=== PATIENT | female | born 1950 | race American Indian/Alaskan Native ===

== ENCOUNTER 2017-08-28 11:16 | Outpatient (CLI) | payer MEDICARE, OTHER ==
[2017-08-28 11:49] LABS: CREATININE 0.8 mg/dL (0.4-1.0)
== END 2017-08-28 11:17 | disposition home or self-care (01) ==
LOC: LAB 11:16
PROVIDERS: ATTEND Obstetrics & Gynecology
DX: M81.0 Age-related osteoporosis without current pathological fracture (principal)
CPT/HCPCS: 36415; 82565

== ENCOUNTER 2017-10-22 08:00 | Outpatient (CLI) | payer MEDICARE, OTHER ==
[2017-10-22 19:13] LABS: BASOPHILS % (AUTO) 0.7 %; EOSINOPHILS # (AUTO) 0.1 10^3/uL (0.0-0.7); EOSINOPHILS % (AUTO) 1.3 %; HGB - HEMOGLOBIN 14.9 g/dL (12.0-16.0); LYMPHOCYTES # (AUTO) 1.3 10^3/uL (1.5-3.5); MEAN CORPUSCULAR HEMOGLOBIN 30.9 pg (27.0-31.0); MEAN CORPUSCULAR HGB CONC 32.5 g/dL (32.0-36.0); MEAN CORPUSCULAR VOLUME 95.2 fL (81.0-99.0); MONOCYTES # (AUTO) 0.4 10^3/uL (0.0-1.0); MONOCYTES % (AUTO) 7.1 %; NEUTROPHILS # (AUTO) 3.9 10^3/uL (1.5-6.6); NEUTROPHILS % (AUTO) 67.9 %; PLT - PLATELET COUNT 210 10^3/uL (130-450); RED BLOOD COUNT 4.83 10^6/uL (4.20-5.40); RED CELL DISTRIBUTION WIDTH 12.8 % (12.0-15.0); WHITE BLOOD COUNT 5.8 x10^3/uL (4.8-10.8)
[2017-10-22 19:24] LABS: ALBUMIN 4.7 g/dL (3.2-5.5); BILIRUBIN,TOTAL 0.9 mg/dL (0.2-1.0); CALCIUM 9.5 mg/dL (8.5-10.3); CREATININE 0.7 mg/dL (0.4-1.0); TOTAL PROTEIN 7.1 g/dL (6.7-8.2)
== END 2017-10-22 08:01 | disposition home or self-care (01) ==
LOC: LAB.WCP 08:00
PROVIDERS: ATTEND Family Medicine
DX: M81.0 Age-related osteoporosis without current pathological fracture (principal)
CPT/HCPCS: 36415; 80053; 85025

== ENCOUNTER 2018-02-26 10:15 | Outpatient (CLI) | payer MEDICARE, OTHER ==
--- NOTE | 2018-02-27 17:54 | Mammography Report ---
DIGITAL SCREENING MAMMOGRAM: 02/26/2018 CLINICAL INDICATION: A 67-year-old with history of benign biopsies for screening. The patient reports having had previous outside mammograms greater than 20 years ago. This will serve as a new baseline. TECHNIQUE: Routine CC and MLO projections were obtained of the breasts. FINDINGS: The breasts demonstrate heterogeneously dense fibroglandular parenchyma bilaterally. Punctate, typically benign calcifications are present. No suspicious masses, clustered microcalcifications, or regions of architectural distortion are identified. IMPRESSION: BENIGN FINDINGS. RECOMMENDATION: Routine annual screening unless otherwise clinically indicated. BI-RADS category 2 benign findings. STANDARD QUALIFYING STATEMENTS 1. This examination was reviewed with the aid of Computed-Aided Detection (CAD). 2. A negative or benign imaging report should not delay biopsy if clinically suspicious findings are present. Consider surgical consultation if warranted. More than 5% of cancers are not identified by imaging. 3. Dense breasts may obscure an underlying neoplasm. TD: 02/27/2018 15:52
== END 2018-02-26 10:16 | disposition home or self-care (01) ==
LOC: DI.N 10:15
PROVIDERS: ATTEND Family Medicine
DX: Z12.31 Encounter for screening mammogram for malignant neoplasm of breast (principal)
CPT/HCPCS: 77067

== ENCOUNTER 2018-06-25 08:00 | Outpatient (CLI) | payer MEDICARE, OTHER | END 2018-06-25 08:01 | disposition home or self-care (01) | LOC: LAB.R 08:00 | PROVIDERS: ATTEND Nurse Practitioner | DX: N39.0 Urinary tract infection, site not specified (principal) | CPT/HCPCS: 87086; 87181 ==

== ENCOUNTER 2018-07-21 23:07 | Emergency (ER) | payer MEDICARE, OTHER ==
[2018-07-21 23:52] LABS: BASOPHILS % (AUTO) 0.5 %; EOSINOPHILS # (AUTO) 0.1 10^3/uL (0.0-0.7); EOSINOPHILS % (AUTO) 1.6 %; HGB - HEMOGLOBIN 16.3 g/dL (12.0-16.0); LYMPHOCYTES # (AUTO) 3.8 10^3/uL (1.5-3.5); MEAN CORPUSCULAR VOLUME 94.3 fL (81.0-99.0); MEAN PLATELET VOLUME 8.4 fL (7.9-10.8); MONOCYTES # (AUTO) 0.5 10^3/uL (0.0-1.0); MONOCYTES % (AUTO) 6.1 %; NEUTROPHILS # (AUTO) 4.3 10^3/uL (1.5-6.6); NEUTROPHILS % (AUTO) 48.8 %; PLT - PLATELET COUNT 244 10^3/uL (130-450); RED BLOOD COUNT 5.09 10^6/uL (4.20-5.40); RED CELL DISTRIBUTION WIDTH 12.8 % (12.0-15.0); WHITE BLOOD COUNT 8.8 x10^3/uL (4.8-10.8)
[2018-07-22] LABS: ALBUMIN/GLOBULIN RATIO 1.8 (1.0-2.2); BILIRUBIN,TOTAL 0.8 mg/dL (0.2-1.0); CALCIUM 9.3 mg/dL (8.5-10.3); CREATININE 0.8 mg/dL (0.4-1.0); TOTAL PROTEIN 7.8 g/dL (6.7-8.2)
--- NOTE | 2018-07-22 00:28 | ED Physician Documentation ---
PD HPI ABD PAIN - Stated complaint Stated Complaint: ABDOMINAL PAIN - Chief complaint Chief Complaint: Abd Pain - History obtained from History obtained from: Patient, Family - History of Present Illness Timing - onset: Enter time Timing - details: Abrupt onset, Waxing and waning Pain level max: 10 Pain level now: 6 Quality: Pain Improved by: Vomiting (vomited in ED prior to this evaluation and had significant relief of symptoms with vomiting) Worsened by: Other (no exacerbating factors) Associated symptoms: Nausea, Vomiting, Constipation (chronic). No: Fever, Diarrhea Similar symptoms before: Has not had sx before Recently seen: Not recently seen - Additional information Additional information: c/o sudden onset LUQ abdominal pain radiating to periumbilical area tonight 9:30 PM while at rest at home watching TV. waxing and waning without apparent exacerbating factors. Had partial symptom relief with vomiting after ED arrival. Review of Systems Constitutional: denies: Fever, Chills, Sweats Cardiac: reports: Reviewed and negative Respiratory: reports: Reviewed and negative GI: reports: Abdominal Pain, Nausea, Vomiting, Constipation. 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 - Present Medications Home Medications: Ambulatory Orders Medication Instructions Recorded Confirmed Melatonin 1 mg PO QPM 02/22/17 02/22/18 Cholecalciferol (Vitamin D3) 2,000 unit PO DAILY PM 09/03/17 02/22/18 [Vitamin D] Denosumab [Prolia] 60 mg SUBQ ONCE 09/03/17 09/03/17 Ibuprofen [Advil] 400 mg PO DAILY PRN 09/03/17 02/22/18 Loratadine [Claritin] 10 mg PO DAILY PRN 09/03/17 02/22/18 Omeprazole [PriLOSEC] 1 tab ORAL DAILY PRN 09/03/17 02/22/18 Promethazine [Phenergan] 12.5 mg PO DAILY PRN 09/03/17 02/22/18 Promethazine Sup [Phenergan Supp] 1 supp MD DAILY PRN 02/22/18 02/22/18 Esomeprazole Magnesium [Nexium] 20 mg PO DAILY #14 capsule. 07/22/18 - Allergies Allergies/Adverse Reactions: Allergies Allergy/AdvReac Type Severity Reaction Status Date / Time ondansetron Allergy Nausea Verified 07/21/18 23:19 codeine AdvReac Nausea Verified 07/21/18 23:19 hydrocodone AdvReac Nausea Verified 07/21/18 23:19 lisinopril AdvReac Nausea Verified 07/21/18 23:19 meclizine AdvReac Nausea Verified 07/21/18 23:19 mirtazapine AdvReac Nausea Verified 07/21/18 23:19 morphine AdvReac Nausea Verified 07/21/18 23:19 propranolol AdvReac Nausea Verified 07/21/18 23:19 trazodone AdvReac Nausea Verified 07/21/18 23:19 - Social History Does the pt smoke?: No Smoking Status: Never smoker Does the pt drink ETOH?: Yes Does the pt have substance abuse?: No - Immunizations Immunizations are current?: Yes - POLST Patient has POLST: No PD ED PE NORMAL - Vitals Vital signs reviewed: Yes - General General: Alert and oriented X 3, No acute distress, Well developed/nourished - HEENT HEENT: Moist mucous membranes - Cardiac Cardiac: RRR, No murmur - Respiratory Respiratory: No respiratory distress, Clear bilaterally - Abdomen Abdomen: Soft, Non distended, Other (mild tenderness to palpation LLQ and LUQ without guarding or rebound) Results - Vitals Vitals: Vital Signs - 24 hr 07/21/18 23:15 Temperature 36.3 C L Heart Rate 66 Respiratory 18 Rate Blood Pressure 178/90 H O2 Saturation 97 Oxygen O2 Source Room air - Labs Labs: Laboratory Tests 07/21/18 07/21/18 23:30 23:30 WBC 8.8 RBC 5.09 Hgb 16.3 H Hct 48.0 H MCV 94.3 MCH 32.0 H MCHC 34.0 RDW 12.8 Plt Count 244 MPV 8.4 Neut # (Auto) 4.3 Lymph # (Auto) 3.8 H [place] # (Auto) 0.5 Eos # (Auto) 0.1 Baso # (Auto) 0.0 Absolute Nucleated RBC 0.01 Nucleated RBC % 0.1 Sodium 138 Potassium 3.4 L Chloride 100 L Carbon Dioxide 27 Anion Gap 11.0 BUN 19 Creatinine 0.8 Estimated GFR (MDRD) 71 L Glucose 133 H Calcium 9.3 Total Bilirubin 0.8 AST 27 ALT 26 Alkaline Phosphatase 63 Total Protein 7.8 Albumin 5.0 Globulin 2.8 Albumin/Globulin Ratio 1.8 Lipase 38 - Rads (name of study) CT A/P Radiology: Prelim report reviewed, See rad report PD MEDICAL DECISION MAKING - ED course Complexity details: reviewed results, re-evaluated patient, considered differential, d/w patient, d/w family ED course: Patient declined analgesics, both initially and on reevaluation. She says she had relief with vomiting and thus did not need analgesics. On reevaluation, she reported further improvement in her pain and resolution of nausea. - Sepsis Event Vital Signs: Vital Signs - 24 hr 07/21/18 23:15 Temperature 36.3 C L Heart Rate 66 Respiratory 18 Rate Blood Pressure 178/90 H O2 Saturation 97 Oxygen O2 Source Room air Departure - Departure Disposition: 01 Home, Self Care Clinical Impression: Abdominal pain Qualifiers: Abdominal location: left upper quadrant Qualified Code(s): R10.12 - Left upper quadrant pain Condition: Good Instructions: ED Abdominal Pain Unkn Cause Prescriptions: Esomeprazole Magnesium [Nexium] 20 mg PO DAILY #14 capsule. 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 You should discuss this with your doctor; they might want to perform tests and/or refer you to a specialist if indicated. You also have a hiatal hernia on the CT scan. This also should be discussed with your primary care provider. Discharge Date/Time: 07/22/18 03:36
[2018-07-22 01:00] LABS: BILIRUBIN,URINE NEGATIVE (NEGATIVE); GLUCOSE, URINE (UA) NEGATIVE (NEGATIVE); KETONES,URINE (UA) NEGATIVE (NEGATIVE); LEUKOCYTE ESTERASE, URINE NEGATIVE (NEGATIVE); NITRITE,URINE NEGATIVE (NEGATIVE); OCCULT BLOOD,URINE NEGATIVE (NEGATIVE); PH,URINE 6.5 PH (5.0-7.5); PROTEIN,URINE TRACE mg/dL (NEGATIVE); UROBILINOGEN,URINE 0.2 (NORMAL) E.U./dL (NORMAL)
[2018-07-22 01:02] LABS: CLARITY,URINE CLEAR (CLEAR)
[2018-07-22] MEDS ORDERED: IOPAMIDOL-300 100 ML VIAL ONE (01:02)
[2018-07-22] MEDS ORDERED: IOPAMIDOL-300 100 ML VIAL IVP ONE (01:32)
--- NOTE | 2018-07-22 01:57 | CT Report ---
Reason: left abdominal pain Procedure Date: 07/22/2018 Accession Number: [id number] / [id number] Procedure: CT - Abdomen/Pelvis W/ CPT Code: FULL RESULT: EXAM: CT ABDOMEN AND PELVIS EXAM DATE: 07/22/2018 01:29 AM. CLINICAL HISTORY: Left lower abdominal pain since 9:30 p.m. today, constipation for 2 days, nausea and vomiting. COMPARISONS: None. TECHNIQUE: Routine helical CT imaging was performed through the abdomen and pelvis. IV contrast: 100 mL Isovue 300. Enteric contrast: No. Reconstructions: Coronal and sagittal. In accordance with CT protocol optimization, one or more of the following dose reduction techniques were utilized for this exam: automated exposure control, adjustment of mA and/or KV based on patient size, or use of iterative reconstructive technique. FINDINGS: ABDOMEN: Liver: No significant abnormality. Stomach/Distal Esophagus: Medium size hiatal hernia. Gallbladder: No significant abnormality. Bile Ducts: No significant abnormality. Pancreas: No significant abnormality. Spleen: No significant abnormality. Kidneys: Right kidney is not visualized, surgically or congenitally absent. No suspicious nodularity within the right renal fossa. Normal appearance of the right adrenal. The left kidney is without significant abnormality. Adrenals: Normal appearance of the adrenals. Bowel: Moderate to large amount of fecal material is present within the transverse and descending colon. There is moderate amount of fluid within the right hemicolon. This suggests an impending diarrheal event. Appendix: Normal. Lymph Nodes: No pathologically enlarged nodes. Vasculature: Normal caliber aorta. Fluid: No significant free fluid. Abdominal Wall: No significant abnormality. Other: No significant abnormality. 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 The right ovary is not visualized. No suspicious or adnexal lesion. Physiologic postmenopausal appearance of the left ovary. Bladder: No significant abnormality. Lymph Nodes: No pathologically enlarged nodes. Fluid: No significant free fluid. Other: None. BONES: No suspicious bony lesions. LOWER CHEST: No significant consolidation or effusion. IMPRESSION: 1. There is a large amount of retained fecal material within the distal colon suggesting constipation. There is a moderate amount of fluid within the right hemicolon, suggesting an impending diarrheal event. 2. No small bowel obstruction. Appendix is normal. 3. Congenitally or surgically absent right kidney. No suspicious nodularity within the right renal fossa. Normal appearance of the left kidney. 4. There is a medium sized hiatal and paraesophageal hernia. No gastric obstruction. RADIA
[2018-07-22] MEDS ORDERED: PANTOPRAZOLE 40 MG TABLET PO STA (03:20)
[2018-07-22 03:31] VITALS: BP 144/78
== END 2018-07-22 03:36 | disposition home or self-care (01) ==
LOC: ED 23:07
DX: R10.12 Left upper quadrant pain (principal); Q60.0 Renal agenesis, unilateral
CPT/HCPCS: 36415; 74177; 80053; 81003; 83690; 85025; 99283; A9270; Q9967; 81001; 87086

== ENCOUNTER 2018-09-16 11:54 | Outpatient (CLI) | payer MEDICARE, OTHER ==
--- NOTE | 2018-09-17 09:09 | DEXA Report ---
Reason: OSTEOPOROSIS Procedure Date: 09/16/2018 Accession Number: [id number] / [id number] Procedure: DEX - Dexa Spine and/or Hip CPT Code: FULL RESULT: EXAM: Dexa Spine and/or Hip DATE: 09/16/2018 12:38 PM CLINICAL HISTORY: OSTEOPOROSIS TECHNIQUE: Dual energy x-ray absorptiometry (DXA) was performed on a [employer] System. Regions measured are the AP Spine, femoral neck, and if needed forearm. COMPARISON: None. In accordance with the International Society for Clinical Densitometry (ISCD) guidelines, data from previous exams may be reanalyzed using current recommendations and techniques. This is done to allow a more accurate basis for comparison with the current study. FINDINGS: The data for the lumbar spine is as follows: BMD (g/cm/cm) T-SCORE Z-SCORE REGION L1 0.883 -2.1 -0.2 L2 1.095 -0.9 1.0 L3 1.072 -1.1 0.8 L4 0.980 -1.8 0.1 TOTAL 1.008 -1.4 0.5 NOTE: All evaluable vertebrae are used for classification The data for the hip is as follows: BMD (g/cm/cm) T-SCORE Z-SCORE REGION Neck 0.840 -1.4 0.4 TOTAL 0.890 -0.9 0.7 NOTE: The femoral neck or total proximal femur, whichever is lowest, is used for classification. IMPRESSION: THE WHO CLASSIFICATION BASED ON THE INTERNATIONAL REFERENCE STANDARD IS OSTEOPENIA. THE FRACTURE RISK IS INCREASED. RECOMMENDATION: Patients with diagnosis of osteoporosis or osteopenia should have regular bone mineral density assessment. For those eligible for Medicare, routine testing is allowed once every 2 years. Testing frequency can be increased for patients who have rapidly progressing disease or for those who are receiving medical therapy to restore bone mass. COMMENT: World Health Organization (WHO) definitions for osteoporosis and osteopenia: NORMAL BMD: T-score at -1.0 or higher, fracture risk is low OSTEOPENIA BMD: T-score between -1.0 and -2.5, fracture risk is increased. OSTEOPOROSIS BMD: T-score at -2.5 or lower, fracture risk is high. National Osteoporosis Foundation recommends: 1. Obtain adequate dietary calcium (at least 1200 mg per day) and vitamin D (400-800 international units per day). 2. Participate, as appropriate, in regular weightbearing and muscle-strengthening exercise. 3. Avoid tobacco use and reduce alcohol and caffeine intake. 4. For more detailed information see the website at www.NOF.org.
== END 2018-09-16 11:55 | disposition home or self-care (01) ==
LOC: DI 11:54
PROVIDERS: ATTEND Family Medicine
DX: M85.89 Other specified disorders of bone density and structure, multiple sites (principal)
CPT/HCPCS: 77080

== ENCOUNTER 2018-10-02 08:00 | Outpatient (CLI) | payer MEDICARE, OTHER ==
[2018-10-02 20:13] LABS: ALBUMIN/GLOBULIN RATIO 1.4 (1.0-2.2); BILIRUBIN,TOTAL 0.6 mg/dL (0.2-1.0); CALCIUM 8.8 mg/dL (8.5-10.3); CREATININE 0.7 mg/dL (0.4-1.0); TOTAL PROTEIN 6.9 g/dL (6.7-8.2)
[2018-10-02 20:28] LABS: THYROID STIMULATING HORMONE 1.59 uIU/mL (0.34-5.60)
[2018-10-02 20:29] LABS: FREE T4 (FREE THYROXINE) 0.78 ng/dL (0.58-1.64)
== END 2018-10-02 23:59 | disposition home or self-care (01) ==
LOC: LAB.WCP 08:00
PROVIDERS: ATTEND Psychiatry & Neurology Neurology
DX: G31.84 Mild cognitive impairment of uncertain or unknown etiology (principal)
CPT/HCPCS: 36415; 80053; 82607; 83921; 84439; 84443

== ENCOUNTER 2019-01-23 09:11 | Outpatient (CLI) | payer MEDICARE, OTHER ==
[2019-01-23 09:51] LABS: CREATININE 0.7 mg/dL (0.4-1.0)
== END 2019-01-23 09:12 | disposition home or self-care (01) ==
LOC: LAB 09:11
DX: Z01.818 Encounter for other preprocedural examination (principal)
CPT/HCPCS: 36415; 82565; 84132; 85014; 93005

== ENCOUNTER 2019-06-25 08:00 | Outpatient (CLI) | payer MEDICARE, OTHER ==
[2019-06-25 12:24] LABS: BASOPHILS % (AUTO) 0.7 %; EOSINOPHILS # (AUTO) 0.1 10^3/uL (0.0-0.7); EOSINOPHILS % (AUTO) 1.1 %; LYMPHOCYTES # (AUTO) 1.8 10^3/uL (1.5-3.5); LYMPHOCYTES % (AUTO) 28.9 %; MEAN CORPUSCULAR HEMOGLOBIN 31.7 pg (27.0-31.0); MEAN CORPUSCULAR HGB CONC 33.1 g/dL (32.0-36.0); MEAN CORPUSCULAR VOLUME 95.9 fL (81.0-99.0); MEAN PLATELET VOLUME 10.6 fL (7.9-10.8); MONOCYTES # (AUTO) 0.5 10^3/uL (0.0-1.0); MONOCYTES % (AUTO) 7.4 %; NEUTROPHILS # (AUTO) 3.8 10^3/uL (1.5-6.6); NEUTROPHILS % (AUTO) 61.6 %; PLT - PLATELET COUNT 221 10^3/uL (130-450); RED BLOOD COUNT 4.41 10^6/uL (4.20-5.40); RED CELL DISTRIBUTION WIDTH 12.4 % (12.0-15.0); WHITE BLOOD COUNT 6.1 x10^3/uL (4.8-10.8)
[2019-06-25 13:18] LABS: FERRITIN 48.6 ng/mL (11.0-306.8)
== END 2019-06-25 23:59 | disposition home or self-care (01) ==
LOC: LAB.WCP 08:00
PROVIDERS: ATTEND Family Medicine
DX: L65.9 Nonscarring hair loss, unspecified (principal); E53.8 Deficiency of other specified B group vitamins
CPT/HCPCS: 36415; 82607; 82728; 84443; 85025

== ENCOUNTER 2019-08-04 11:08 | Outpatient (CLI) | payer MEDICARE, OTHER ==
--- NOTE | 2019-08-04 14:49 | XRAY Report ---
Reason: DDD CERVICAL SPINE Procedure Date: 08/04/2019 Accession Number: [id number] / [id number] Procedure: WCP - Cervical Spine 2 View CPT Code: FULL RESULT: EXAM: CERVICAL SPINE RADIOGRAPHY EXAM DATE: 08/04/2019 11:08 AM. CLINICAL HISTORY: Chronic cervical spine pain COMPARISONS: None. TECHNIQUE: 3 views. FINDINGS: Alignment: Normal. No spondylolisthesis or scoliosis. Bones: The cervical vertebral bodies and posterior elements are well seen from the skull base through C7-T1. No fractures or bone lesions. Disks: Mild degenerative disk space narrowing C5-C6 and C6-C7. Facets: Mild degenerative disease. Soft Tissues: No prevertebral soft tissue swelling. IMPRESSION: Degenerative change cervical spine most marked C5-C6 and C6-C7 without superimposed acute findings. RADIA
== END 2019-08-04 23:59 | disposition home or self-care (01) ==
LOC: DI.WCP 11:08
PROVIDERS: ATTEND Family Medicine
DX: M50.322 Other cervical disc degeneration at C5-C6 level (principal); M47.812 Spondylosis without myelopathy or radiculopathy, cervical region
CPT/HCPCS: 72040

== ENCOUNTER 2020-03-25 09:45 | Outpatient (CLI) | payer MEDICARE, OTHER ==
[2020-03-25 11:51] LABS: BASOPHILS # (AUTO) 0.1 10^3/uL (0.0-0.1); EOSINOPHILS # (AUTO) 0.1 10^3/uL (0.0-0.7); EOSINOPHILS % (AUTO) 2.1 %; HGB - HEMOGLOBIN 13.6 g/dL (12.0-16.0); LYMPHOCYTES # (AUTO) 1.6 10^3/uL (1.5-3.5); LYMPHOCYTES % (AUTO) 30.7 %; MEAN CORPUSCULAR HEMOGLOBIN 32.5 pg (27.0-31.0); MEAN CORPUSCULAR HGB CONC 33.5 g/dL (32.0-36.0); MEAN CORPUSCULAR VOLUME 96.9 fL (81.0-99.0); MEAN PLATELET VOLUME 10.5 fL (7.9-10.8); MONOCYTES # (AUTO) 0.4 10^3/uL (0.0-1.0); MONOCYTES % (AUTO) 7.6 %; NEUTROPHILS % (AUTO) 58.2 %; PLT - PLATELET COUNT 221 10^3/uL (130-450); RED BLOOD COUNT 4.19 10^6/uL (4.20-5.40); RED CELL DISTRIBUTION WIDTH 12.1 % (12.0-15.0); WHITE BLOOD COUNT 5.2 x10^3/uL (4.8-10.8)
[2020-03-25 12:24] LABS: ALBUMIN 4.1 g/dL (3.2-5.5); ALBUMIN/GLOBULIN RATIO 1.8 (1.0-2.2); ALKALINE PHOSPHATASE 75 IU/L (42-121); ALT ALANINE AMINOTRANSFERASE 33 IU/L (10-60); AST ASPARTATE AMINOTRANSFERASE 30 IU/L (10-42); BILIRUBIN,TOTAL 0.8 mg/dL (0.2-1.0); BUN - BLOOD UREA NITROGEN 17 mg/dL (6-20); CALCIUM 9.3 mg/dL (8.5-10.3); CARBON DIOXIDE - CO2 26 mmol/L (21-32); CHLORIDE 109 mmol/L (101-111); CHOL/HDL RATIO 3.1 (<4.4); CHOLESTEROL 235 mg/dL; CREATININE 0.8 mg/dL (0.4-1.0); GLUCOSE 98 mg/dL (70-100); HDL CHOLESTEROL 75 mg/dL; LDL CHOLESTEROL,CALCULATED 145 mg/dL; LDL/HDL RATIO 1.9 (<4.4); SODIUM 141 mmol/L (135-145); TOTAL PROTEIN 6.4 g/dL (6.7-8.2); VLDL CHOLESTEROL 15 mg/dL
== END 2020-03-25 23:59 | disposition home or self-care (01) ==
LOC: LAB.WCP 09:45
PROVIDERS: ATTEND Family Medicine
DX: Z00.00 Encounter for general adult medical examination without abnormal findings (principal); I10 Essential (primary) hypertension; E53.8 Deficiency of other specified B group vitamins
CPT/HCPCS: 36415; 80053; 80061; 82607; 83721; 84443; 85025

== ENCOUNTER 2020-06-23 10:19 | Outpatient (CLI) | payer MEDICARE, OTHER ==
[2020-06-23 10:37] LABS: HGB - HEMOGLOBIN 14.2 g/dL (12.0-16.0); MEAN CORPUSCULAR HEMOGLOBIN 31.3 pg (27.0-31.0); MEAN CORPUSCULAR HGB CONC 32.6 g/dL (32.0-36.0); MEAN PLATELET VOLUME 9.7 fL (7.9-10.8); RED BLOOD COUNT 4.53 10^6/uL (4.20-5.40); RED CELL DISTRIBUTION WIDTH 12.3 % (12.0-15.0); WHITE BLOOD COUNT 6.7 x10^3/uL (4.8-10.8)
[2020-06-23 11:00] LABS: ALBUMIN 4.3 g/dL (3.2-5.5); ALBUMIN/GLOBULIN RATIO 1.5 (1.0-2.2); ALKALINE PHOSPHATASE 88 IU/L (42-121); ALT ALANINE AMINOTRANSFERASE 21 IU/L (10-60); AST ASPARTATE AMINOTRANSFERASE 20 IU/L (10-42); BILIRUBIN,TOTAL 0.7 mg/dL (0.2-1.0); BUN - BLOOD UREA NITROGEN 14 mg/dL (6-20); CALCIUM 9.5 mg/dL (8.5-10.3); CARBON DIOXIDE - CO2 28 mmol/L (21-32); CHLORIDE 105 mmol/L (101-111); CREATININE 0.8 mg/dL (0.4-1.0); GLUCOSE 103 mg/dL (70-100); SODIUM 140 mmol/L (135-145); TOTAL PROTEIN 7.2 g/dL (6.7-8.2); URIC ACID 4.1 mg/dL (2.6-7.2)
[2020-06-23 11:40] LABS: CRP - C-REACTIVE PROTEIN < 1.0 mg/dL (0-1.0)
[2020-06-23 12:43] LABS: RHEUMATOID FACTOR NEGATIVE (Negative)
--- NOTE | 2020-06-23 15:12 | XRAY Report ---
PROCEDURE: Shoulder 2 View BILAT INDICATIONS: LAB DRAW,BILATERAL HIP BILAT SHOULDER PAIN TECHNIQUE: 4 views of the shoulder were acquired. COMPARISON: None. FINDINGS: Bones: No fractures or dislocations. No suspicious bony lesions. Visualized ribs appear intact. S evere acromioclavicular narrowing. Soft tissues: No suspicious soft tissue calcifications. IMPRESSION: Severe acromioclavicular degenerative narrowing. Reviewed by: Doris Augustin MD on 06/23/2020 3:11 PM PDT Approved by: Doris Augustin MD on 06/23/2020 3:11 PM PDT Station ID: [id number]
--- NOTE | 2020-06-23 15:17 | XRAY Report ---
PROCEDURE: Pelvis 1 View INDICATIONS: LAB DRAW,BILATERAL HIP BILAT SHOULDER PAIN TECHNIQUE: 1 view(s) of the pelvis acquired. COMPARISON: None. FINDINGS: Bones: No fractures or dislocations. No suspicious bony lesions. Mild to moderate bilateral hip de generative change. Soft tissues: Visualized bowel gas pattern is normal. No suspicious soft tissue calcifications. IMPRESSION: Mild to moderate bilateral hip degenerative change. Reviewed by: Doris Augustin MD on 06/23/2020 3:15 PM PDT Approved by: Doris Augustin MD on 06/23/2020 3:15 PM PDT Station ID: [id number]
[2020-06-25 13:26] LABS: DNA (DS) ANTIBODY <1 IU/mL
[2020-06-25 15:12] LABS: ANA SCREEN NEGATIVE (NEGATIVE)
[2020-06-25 17:55] LABS: CYCLIC CITRULL PEPTIDE CCP IGG <16 UNITS
== END 2020-06-23 10:20 | disposition home or self-care (01) ==
LOC: LAB 10:19 → DI 10:20
PROVIDERS: ATTEND Family Medicine
DX: M19.012 Primary osteoarthritis, left shoulder (principal); M19.011 Primary osteoarthritis, right shoulder; M16.0 Bilateral primary osteoarthritis of hip; M25.50 Pain in unspecified joint
CPT/HCPCS: 36415; 72170; 80053; 84550; 85027; 85651; 86038; 86140; 86200; 86225; 86430

== ENCOUNTER 2020-07-07 10:14 | Outpatient (CLI) | payer MEDICARE, OTHER ==
--- NOTE | 2020-07-07 11:36 | MRI Report ---
PROCEDURE: Cervical Spine W/O INDICATIONS: PARESTHESIA TECHNIQUE: Noncontrast sagittal T1 spin echo and T2 fast spin echo, sagittal STIR, foraminal oblique sagittal T2 fast spin echo, and axial gradient echo or T2 fast spin echo through the cervical spine. COMPARISON: Cervical spine plain films dated 08/04/2019. FINDINGS: Image quality: Excellent. Alignment and Curvature: There is normal bony alignment. Bone Marrow: Marrow demonstrates normal overall signal. Spinal Cord: Visualized spinal cord has normal size and signal. No cerebellar tonsillar herniation. Paraspinous Soft Tissues: No paravertebral masses. Prevertebral soft tissues are normal in thicknes s. There is mild pannus formation at C1-C2 anterior articulation. C2-C3: Minimal disc bulge. Bilateral facet hypertrophy. Mild left uncovertebral joint hypertrophy. N o canal stenosis. Mild left foraminal stenosis. C3-C4: No canal stenosis. Left facet hypertrophy. Mild left foraminal stenosis. C4-C5: Mild disc bulge. AP diameter of the canal is 1.2 cm. Left facet hypertrophy. Mild to moderate left foraminal narrowing. C5-C6: Mild chronic disc height loss. Diffuse posterior disc plus osteophyte. Facet and ligament hyp ertrophy. Moderate canal stenosis. Prominent bilateral uncovertebral joint hypertrophy. Severe right foraminal narrowing with right C6 nerve root impingement. Moderate to severe left foraminal narrowing with flattening deformity on the exiting left C6 nerve root. C6-C7: Mild disc bulge. Facet and ligament hypertrophy. Borderline canal stenosis. Bilateral uncover tebral joint hypertrophy. Mild to moderate right foraminal narrowing. Moderate to severe left foramin al narrowing with flattening deformity on the exiting left C7 nerve root. C7-T1: No canal stenosis or foraminal stenosis. IMPRESSION: 1. Diffuse cervical spondylitic change. 2. Findings are most significant at C5-C6. There is moderate canal stenosis. There is severe right fo raminal stenosis and moderate to severe left foraminal stenosis. 3. At C6-C7, there is borderline canal stenosis. There is mild to moderate right foraminal narrowing and moderate to severe left foraminal narrowing. Reviewed by: Joe Calix MD on 07/07/2020 11:35 AM PDT Approved by: Joe Calix MD on 07/07/2020 11:35 AM PDT Station ID: [id number]
== END 2020-07-07 10:15 | disposition home or self-care (01) ==
LOC: DI 10:14
PROVIDERS: ATTEND Family Medicine
DX: M50.30 Other cervical disc degeneration, unspecified cervical region (principal); M47.812 Spondylosis without myelopathy or radiculopathy, cervical region; M48.02 Spinal stenosis, cervical region; R20.2 Paresthesia of skin; M25.511 Pain in right shoulder; M25.512 Pain in left shoulder
CPT/HCPCS: 72141

== ENCOUNTER 2020-07-28 07:00 | Outpatient (CLI) | payer MEDICARE, OTHER | END 2020-07-28 23:59 | disposition home or self-care (01) | LOC: LAB.WCP 07:00 | PROVIDERS: ATTEND Family Medicine | DX: R68.2 Dry mouth, unspecified (principal) | CPT/HCPCS: 36415; 81599; 86235 ==

== ENCOUNTER 2021-01-28 08:00 | Outpatient (CLI) | payer MEDICARE, OTHER | END 2021-01-28 23:59 | disposition home or self-care (01) | LOC: LAB.R 08:00 | PROVIDERS: ATTEND Family Medicine | DX: R39.9 Unspecified symptoms and signs involving the genitourinary system (principal) | CPT/HCPCS: 87086 ==

== ENCOUNTER 2021-04-05 11:06 | Outpatient (CLI) | payer MEDICARE, OTHER ==
--- NOTE | 2021-04-05 13:49 | XRAY Report ---
PROCEDURE: Chest 2 View X-Ray INDICATIONS: COUGH TECHNIQUE: 2 view(s) of the chest. COMPARISON: None. FINDINGS: Surgical changes and devices: None. Lungs and pleura: No pleural effusions or pneumothorax. Lungs are clear. Mediastinum: Mediastinal contours are normal. Heart size is normal. Bones and chest wall: No suspicious bony abnormalities. Soft tissues appear unremarkable. IMPRESSION: No acute pulmonary process. Reviewed by: Doris Augustin MD on 04/05/2021 1:47 PM PDT Approved by: Doris Augustin MD on 04/05/2021 1:47 PM PDT Station ID: [id number]
== END 2021-04-05 11:07 | disposition home or self-care (01) ==
LOC: DI.N 11:06
PROVIDERS: ATTEND Family Medicine
DX: R05 Cough (principal)

== ENCOUNTER 2021-08-29 10:50 | Outpatient (CLI) | payer MEDICARE, OTHER ==
--- NOTE | 2021-08-30 08:20 | Mammography Report ---
BILATERAL DIGITAL SCREENING MAMMOGRAM 3D/2D: 08/29/2021 CLINICAL: Routine screening. Comparison is made to exam dated: 02/26/2018 mammogram - [facility]. The tissue of both breasts is predominantly fatty. There are benign vascular calcifications in both breasts. No significant masses, calcifications, or other findings are seen in either breast. There has been no significant interval change. IMPRESSION: BENIGN There is no mammographic evidence of malignancy. A 1 year screening mammogram is recommended. This exam was interpreted at Station ID: [id number]. NOTE: For mammograms, a report in lay terms will be sent to the patient. Approximately 15% of breast malignancies will not be visualized mammographically. In the management of a palpable breast mass, a negative mammogram must not discourage biopsy of a clinically suspicious lesion. Electronically Signed By: Rene Palomino acr/robbierad:08/29/2021 16:13:05 ACR BI-RADS Category 2: Benign Finding(s) 3342F PARENCHYMAL PATTERN: (F) - The breast(s) demonstrate(s) diffuse fatty replacement. BI-RADS CATEGORY: (2) - 2 RECOMMENDATION: (ANNUAL) - Recommend routine annual screening mammography. [id number] 1 year screening LATERALITY: (B)
== END 2021-08-29 10:51 | disposition home or self-care (01) ==
LOC: DI.N 10:50
DX: Z12.31 Encounter for screening mammogram for malignant neoplasm of breast (principal)

== ENCOUNTER 2022-03-14 08:00 | Outpatient (CLI) | payer MEDICARE, OTHER | END 2022-03-14 23:59 | disposition home or self-care (01) | LOC: LAB 08:00 | PROVIDERS: ATTEND Registered Nurse | DX: R21 Rash and other nonspecific skin eruption (principal) | CPT/HCPCS: 87101 ==

== ENCOUNTER 2022-04-11 14:02 | Outpatient (CLI) | payer MEDICARE, OTHER ==
--- NOTE | 2022-04-11 16:28 | DEXA Report ---
PROCEDURE: Dexa Spine and/or Hip INDICATIONS: POST MENOPAUSAL TECHNIQUE: Dual energy x-ray absorptiometry (DXA) was performed on a [employer] System. Regions measur ed are the AP Spine, femoral neck, and if needed forearm. COMPARISON: DEXA 09/16/2019 FINDINGS: Lumbar Spine: Bone Mineral Density 0.763 g/cm/cm,T score -3.5, compared to -1.4 Mild Hip: Bone Mineral Density 0.757 g/cm/cm,T score -2.0, compared to -0.9 Left Femoral Neck: Bone Mineral Density 0.736 g/cm/cm, T score -2.2, compared to -1.4 (T score greater or equal to -1.0: NORMAL) (T score from -1.1 to -2.4: OSTEOPENIA) (T score less than or equal to -2.5 to: OSTEOPOROSIS) Impression: Osteoporosis within the lumbar spine with noted bone mineral loss compared to prior exam. Moderate to severe osteopenia within the hip and femoral neck, with progressive bone loss compared to prior exam. Patients with diagnosis of osteoporosis or osteopenia should have regular bone mineral density assess ment. For those eligible for Medicare, routine testing is allowed once every 2 years. Testing frequ ency can be increased for patients who have rapidly progressing disease or for those who are receivin g medical therapy to restore bone mass. Reviewed by: Doris Augustin MD on 04/11/2022 4:27 PM PDT Approved by: Doris Augustin MD on 04/11/2022 4:27 PM PDT Station ID: [id number]
== END 2022-04-11 14:03 | disposition home or self-care (01) ==
LOC: DI 14:02
PROVIDERS: ATTEND Physician Assistant
DX: Z78.0 Asymptomatic menopausal state (principal); M81.0 Age-related osteoporosis without current pathological fracture

== ENCOUNTER 2022-05-09 11:35 | Outpatient (CLI) | payer MEDICARE, OTHER ==
[2022-05-09 12:04] LABS: CALCIUM 9.9 mg/dL (8.5-10.3); CREATININE 1.2 mg/dL (0.4-1.0); POTASSIUM 4.1 mmol/L (3.5-5.0)
[2022-05-09] MEDS ORDERED: GADOBUTROL 7.5 MMOL/7.5 ML VIAL ONE (12:11)
[2022-05-09] MEDS ORDERED: GADOBUTROL 7.5 MMOL/7.5 ML VIAL IVP ONE (14:50)
--- NOTE | 2022-05-09 15:47 | MRI Report ---
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 COMPARISON: Correlation is made with the accompanying brain MRA and neck MR angiogram examinations, 05/09/2022. FINDINGS: Image quality: Excellent. CSF Spaces: Basal cisterns are patent. No extra-axial fluid collections. Ventricles are normal in size and shape. Brain: No intracranial masses or hemorrhage. Ovalle/white matter interface is normal. Brainstem appe ars normal. Diffusion-weighted images demonstrate no acute ischemic insult. No chronic ischemic ins ults. Normal intravascular flow voids are present. Skull and face: Calvarium has normal marrow signal. Orbits appear normal. Sinuses: Sinuses and mastoids are clear. IMPRESSION: Brain MRI within normal limits for age. Reviewed by: Raul Stark MD on 05/09/2022 2:46 PM AKDT Approved by: Raul Stark MD on 05/09/2022 2:46 PM AKDT Station ID: [id number]
--- NOTE | 2022-05-09 15:50 | MRI Report ---
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 COMPARISON: Correlation is made with the accompanying brain MRI and neck MR angiogram, 05/09/2022. FINDINGS: Image quality: Excellent. Anterior circulation: Intracranial internal carotid arteries demonstrate normal size and intralumina l flow signal. Note is made of a diminutive right A1 segment, with a correspondingly robust left A1 s egment. This is considered to be a developmental variant of no clinical consequence. The flow within the paired anterior cerebral arteries is otherwise normal and symmetric. The flow within the middle cerebral arteries is normal and symmetric. The anterior communicating artery is seen. No stenoses, occlusions, or aneurysms. Posterior circulation: The left V4 segment largely terminates in the left posterior inferior cerebell ar artery. The right V4 segment is unremarkable. There is a normal appearing basilar artery. The sandy w within the posterior cerebral arteries is normal and symmetric. No stenoses, occlusions, or aneury sms. IMPRESSION: Normal-appearing brain MR angiogram. [place] developmental anomalies are incidentally noted, which are not considered to be clini didi significant. Reviewed by: Raul Stark MD on 05/09/2022 2:49 PM JOHNNY Approved by: Raul Stark MD on 05/09/2022 2:49 PM JOHNNY Station ID: [id number]
--- NOTE | 2022-05-09 15:53 | MRI Report ---
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 Coronal dynamic MRA after the administration of con trast in the arterial and venous phases, with rotating 3-dimensional maximum intensity projection (NH P) reformats constructed from subtraction images. COMPARISON: Correlation is made with the accompanying brain MRI and MR angiogram, 05/09/2022. FINDINGS: Image quality: Excellent. Carotid system: Great vessels demonstrate a conventional anatomy as they arise from the aortic arch. The origins of the common carotid arteries appear normal. The calibers and courses of the common c arotid arteries are likewise normal. The carotid bifurcations demonstrate atherosclerotic irregulari ty, with 30-40% narrowing seen on each side. Posterior circulation: The origins of the left vertebral artery is at least 50% narrowed. There is r elatively poor flow seen within the left vertebral artery. The right vertebral artery demonstrates no significant origin stenosis and is robust and dominant to the left side. Miscellaneous: Subclavian arteries are patent throughout. Pre-contrast images through the neck demo nstrate no soft tissue abnormalities. IMPRESSION: 30-40% narrowing seen involving each proximal internal carotid artery. At least 50% narrowing seen involving the origin of the left vertebral artery, with relatively poor f low seen through the left vertebral artery. Reviewed by: Raul Stark MD on 05/09/2022 2:51 PM JOHNNY Approved by: Raul Stark MD on 05/09/2022 2:51 PM AKSHARA Station ID: [id number]
== END 2022-05-09 11:36 | disposition home or self-care (01) ==
LOC: DI 11:35
PROVIDERS: ATTEND Psychiatry & Neurology Neurology
DX: I65.23 Occlusion and stenosis of bilateral carotid arteries (principal); I65.02 Occlusion and stenosis of left vertebral artery; G30.1 Alzheimer's disease with late onset; F02.80 Dementia in other diseases classified elsewhere, unspecified severity, without behavioral disturbance, psychotic disturbance, mood disturbance, and anxiety; R55 Syncope and collapse
CPT/HCPCS: 36415; 70544; 70549; 70551; 80048; A9585

== ENCOUNTER 2022-09-05 11:55 | Outpatient (CLI) | payer MEDICARE, OTHER ==
[2022-09-05 12:39] LABS: BASOPHILS # (AUTO) 0.1 10^3/uL (0.0-0.1); BASOPHILS % (AUTO) 0.8 %; EOSINOPHILS % (AUTO) 0.6 %; HGB - HEMOGLOBIN 13.2 g/dL (12.0-16.0); LYMPHOCYTES # (AUTO) 1.7 10^3/uL (1.5-3.5); LYMPHOCYTES % (AUTO) 25.6 %; MEAN CORPUSCULAR HEMOGLOBIN 32.3 pg (27.0-31.0); MEAN CORPUSCULAR VOLUME 97.8 fL (81.0-99.0); MEAN PLATELET VOLUME 10.8 fL (7.9-10.8); MONOCYTES # (AUTO) 0.4 10^3/uL (0.0-1.0); MONOCYTES % (AUTO) 6.8 %; NEUTROPHILS # (AUTO) 4.3 10^3/uL (1.5-6.6); PLT - PLATELET COUNT 204 10^3/uL (130-450); RED BLOOD COUNT 4.09 10^6/uL (4.20-5.40); RED CELL DISTRIBUTION WIDTH 11.9 % (12.0-15.0); WHITE BLOOD COUNT 6.4 x10^3/uL (4.8-10.8)
[2022-09-05 13:01] LABS: FERRITIN 30.7 ng/mL (11.0-306.8)
[2022-09-05 13:37] LABS: % IRON SATURATION 22 % (20-50); IRON 90 ug/dL (28-170); TOTAL IRON BINDING CAPACITY 400 ug/dL (250-450); TRANSFERRIN 286 mg/dL (192-382)
== END 2022-09-05 11:56 | disposition home or self-care (01) ==
LOC: LAB 11:55
PROVIDERS: ATTEND Physician Assistant
DX: E53.8 Deficiency of other specified B group vitamins (principal); K62.5 Hemorrhage of anus and rectum
CPT/HCPCS: 36415; 82607; 82728; 83540; 84466; 85025

== ENCOUNTER 2022-11-05 20:18 | Emergency (ER) | payer MEDICARE, OTHER ==
[2022-11-05 20:35] LABS: BASOPHILS # (AUTO) 0.1 10^3/uL (0.0-0.1); BASOPHILS % (AUTO) 0.8 %; EOSINOPHILS # (AUTO) 0.1 10^3/uL (0.0-0.7); EOSINOPHILS % (AUTO) 1.3 %; HCT - HEMATOCRIT 43.8 % (37.0-47.0); HGB - HEMOGLOBIN 14.6 g/dL (12.0-16.0); LYMPHOCYTES # (AUTO) 2.2 10^3/uL (1.5-3.5); MEAN CORPUSCULAR HEMOGLOBIN 32.2 pg (27.0-31.0); MEAN CORPUSCULAR HGB CONC 33.3 g/dL (32.0-36.0); MEAN CORPUSCULAR VOLUME 96.5 fL (81.0-99.0); MEAN PLATELET VOLUME 10.2 fL (7.9-10.8); MONOCYTES # (AUTO) 0.6 10^3/uL (0.0-1.0); NEUTROPHILS # (AUTO) 4.5 10^3/uL (1.5-6.6); NEUTROPHILS % (AUTO) 60.6 %; PLT - PLATELET COUNT 249 10^3/uL (130-450); RED BLOOD COUNT 4.54 10^6/uL (4.20-5.40); RED CELL DISTRIBUTION WIDTH 12.1 % (12.0-15.0); WHITE BLOOD COUNT 7.4 x10^3/uL (4.8-10.8)
[2022-11-05] MEDS ORDERED: ASPIRIN CHEW 81 MG TABLET PO STA (20:45)
[2022-11-05 20:53] LABS: ALBUMIN 4.6 g/dL (3.2-5.5); ALBUMIN/GLOBULIN RATIO 1.8 (1.0-2.2); BILIRUBIN,TOTAL 0.4 mg/dL (0.2-1.0); CALCIUM 9.1 mg/dL (8.5-10.3); POTASSIUM 4.8 mmol/L (3.5-5.0); TOTAL PROTEIN 7.2 g/dL (6.7-8.2)
[2022-11-05] MEDS: METOCLOPRAMIDE 10 MG/2 ML VIAL IVP STA ×2 (20:55→21:01)
--- NOTE | 2022-11-05 21:06 | XRAY Report ---
PROCEDURE: Chest 1 View X-Ray INDICATIONS: Chest pain TECHNIQUE: One view of the chest was acquired. COMPARISON: Chest x-ray 04/05/2021. FINDINGS: Surgical changes and devices: None. Lungs and pleura: No pleural effusions or pneumothorax. Lungs are clear. There is hyperinflation o f the lungs with flattening of the hemidiaphragms compatible with COPD. Mediastinum: Mediastinal contours appear normal. Heart size is normal. Bones and chest wall: No suspicious bony lesions. Overlying soft tissues appear unremarkable. IMPRESSION: 1. No acute cardiopulmonary disease. Reviewed by: Hernando Mcdonnell MD on 11/05/2022 9:04 PM [facility] Approved by: Hernando Mcdonnell MD on 11/05/2022 9:04 PM [facility] Station ID: [id number]
--- NOTE | 2022-11-05 21:56 | ED Physician Documentation ---
History of Present Illness - Stated complaint Stated Complaint: CHEST/NECK/JAW PX - Chief complaint Chief Complaint: Cardiac - Additonal information Additional information: 72-year-old female presents emergency department for evaluation of chest pressure and discomfort. It began at approximately 7:45 PM she had just finished walking on the treadmill which she typically does 2-3 times a week. The pain was described as pressure-like with radiation to her left jaw. No nausea or vomiting. She was diaphoretic but had just worked out. She denies any history of similar. She does have a history of hypertension but no tobacco use. She is currently on memantine. 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, Other - Present Medications Home Medications: Ambulatory Orders Medication Instructions Recorded Confirmed Promethazine [Phenergan] 12.5 mg PO DAILY PRN 09/03/17 11/05/22 Losartan Potassium [Cozaar] 100 mg PO DAILY 11/05/22 11/05/22 Memantine HCl [Namenda] 10 mg PO DAILY 11/05/22 11/05/22 - Allergies Allergies/Adverse Reactions: Allergies Allergy/AdvReac Type Severity Reaction Status Date / Time ondansetron Allergy Nausea Verified 11/05/22 20:26 codeine AdvReac Nausea Verified 11/05/22 20:26 hydrocodone AdvReac Nausea Verified 11/05/22 20:26 lisinopril AdvReac Nausea Verified 11/05/22 20:26 meclizine AdvReac Nausea Verified 11/05/22 20:26 mirtazapine AdvReac Nausea Verified 11/05/22 20:26 morphine AdvReac Nausea Verified 11/05/22 20:26 propranolol AdvReac Nausea Verified 11/05/22 20:26 trazodone AdvReac Nausea Verified 11/05/22 20:26 - Social History Does the pt smoke?: No Smoking Status: Never smoker Does the pt drink ETOH?: Yes Does the pt have substance abuse?: No - Immunizations Immunizations are current?: Yes - POLST Patient has POLST: No PD ED PE NORMAL - General General: Alert and oriented X 3, No acute distress - HEENT HEENT: PERRL - Neck Neck: Supple, no meningeal sign, No adenopathy - Cardiac Cardiac: RRR, No murmur - Respiratory Respiratory: No respiratory distress, Clear bilaterally - Abdomen Abdomen: Normal bowel sounds, Soft - Derm Derm: Normal color, Warm and dry, No rash - Extremities Extremities: No deformity - Neuro Neuro: Alert and oriented X 3, story analyst 2-12 intact Eye Opening: Spontaneous Motor: Obeys Commands Verbal: Oriented GCS Score: 15 Results - Vitals Vitals: Vital Signs - 24 hr 11/05/22 11/05/22 20:24 21:05 Temperature 36 C L Heart Rate 81 77 Respiratory 16 17 Rate Blood Pressure 152/64 H 133/70 H O2 Saturation 100 99 Oxygen O2 Source Room air - EKG (time done) 2027 Rate: Rate (enter#) (78) Rhythm: NSR Dutton: Normal Intervals: Normal OR QRS: Low voltage Ischemia: Normal ST segments Compare to prior EKG: Unchanged from prior EKG Computer interpretation: Agree with computer - Labs Labs: Laboratory Tests 11/05/22 11/05/22 11/05/22 20:30 20:30 20:30 WBC 7.4 RBC 4.54 Hgb 14.6 Hct 43.8 MCV 96.5 MCH 32.2 H MCHC 33.3 RDW 12.1 Plt Count 249 MPV 10.2 Neut # (Auto) 4.5 Lymph # (Auto) 2.2 Wirt # (Auto) 0.6 Eos # (Auto) 0.1 Baso # (Auto) 0.1 Absolute Nucleated RBC 0.00 Nucleated RBC % 0.0 Sodium 142 Potassium 4.8 Chloride 105 Carbon Dioxide 28 Anion Gap 9.0 BUN 17 Creatinine 1.0 Estimated GFR (MDRD) 54 L Glucose 95 Calcium 9.1 Total Bilirubin 0.4 AST 35 ALT 30 Alkaline Phosphatase 87 Troponin I High Sens 2.7 Total Protein 7.2 Albumin 4.6 Globulin 2.6 Albumin/Globulin Ratio 1.8 Lipase 48 PD Medical Decision Making - ED course Complexity details: reviewed results, re-evaluated patient, considered differential, d/w patient, d/w family ED course: This is a well-appearing 72-year-old female who presents emergency department for evaluation of substernal chest pain and pressure that began after working out on her treadmill which she typically does 2-3 times a week. She does have some early dementia. On presentation to the ER she was no longer having chest pain. Her initial EKG is sinus without ischemic findings. It is essentially unchanged from her most recent 1 completed in 2019. Given the history I did administer 325 of aspirin orally. Initial labs included a CBC, electrolytes as well as high-sensitivity troponin. My interpretation is that they are all essentially normal. But given the onset of chest pain and her presentation she will certainly need a delta Trope about 2 to 4 hours after the onset of pain which will be just after 10 PM. Clinically the patient does not have signs or symptoms of pulmonary embolism. She is not tachycardic and has no hypoxia. She also has no pleuritic component or risk factors at this time. Patient does have a heart score of 4 putting her at moderate risk of Mace. Unfortunately however there are no beds available locally for which we could transfer for stress testing. pt will be signed out to my night time colleague to f/u on the second troponin and if she remain stable may be dc home. However she will require urgent referral to cardiology for stress test and echcardiogram Departure - Departure Clinical Impression: Chest pain Qualifiers: Chest pain type: unspecified Qualified Code(s): R07.9 - Chest pain, unspecified Condition: Stable Record reviewed to determine appropriate education?: Yes Comments: Syeda campos are seen today in the emergency department because you began having some chest pain after working out on the treadmill. This is concerning for a symptom called angina which can be a precursor to having a heart attack. Here in the emergency department we did do an EKG that did not look any different than it did in 2019. We have done 2 initial troponins which do not show an elevation. However with your age and your history of hypertension you will need to receive an emergent referral to cardiology for further work-up. This should include a stress test and echocardiogram. Please discuss this ED visit with Dr. Bingham as soon as you can tomorrow. I do recommend that you begin taking a daily baby aspirin 81 mg. If at any point you are at home and you develop substernal chest pain and pressure, severe shortness of air you must return immediately to the ER.
[2022-11-05 23:47] VITALS: BP 115/70
== END 2022-11-05 23:46 | disposition home or self-care (01) ==
LOC: ED 20:18
DX: R07.9 Chest pain, unspecified (principal); F03.90 Unspecified dementia, unspecified severity, without behavioral disturbance, psychotic disturbance, mood disturbance, and anxiety
CPT/HCPCS: 36415; 71045; 80053; 83690; 84484; 85025; 93005; 99284; 99285; A9270; J2765

== ENCOUNTER 2022-11-23 07:57 | Outpatient (CLI) | payer MEDICARE, OTHER | END 2022-11-23 07:58 | disposition home or self-care (01) | LOC: DI 07:57 | PROVIDERS: ATTEND Physician Assistant | DX: R07.89 Other chest pain (principal) | CPT/HCPCS: 93306 ==

== ENCOUNTER 2023-08-24 10:13 | Outpatient (CLI) | payer MEDICARE, OTHER ==
[2023-08-24 12:26] LABS: BASOPHILS # (AUTO) 0.1 10^3/uL (0.0-0.1); BASOPHILS % (AUTO) 1.4 %; EOSINOPHILS # (AUTO) 0.1 10^3/uL (0.0-0.7); EOSINOPHILS % (AUTO) 1.7 %; HCT - HEMATOCRIT 41.1 % (37.0-47.0); HGB - HEMOGLOBIN 13.3 g/dL (12.0-16.0); LYMPHOCYTES # (AUTO) 1.8 10^3/uL (1.5-3.5); LYMPHOCYTES % (AUTO) 28.4 %; MEAN CORPUSCULAR HEMOGLOBIN 32.2 pg (27.0-31.0); MEAN CORPUSCULAR HGB CONC 32.4 g/dL (32.0-36.0); MEAN CORPUSCULAR VOLUME 99.5 fL (81.0-99.0); MEAN PLATELET VOLUME 11.2 fL (7.9-10.8); MONOCYTES # (AUTO) 0.4 10^3/uL (0.0-1.0); MONOCYTES % (AUTO) 6.4 %; NEUTROPHILS % (AUTO) 61.8 %; PLT - PLATELET COUNT 213 10^3/uL (130-450); RED BLOOD COUNT 4.13 10^6/uL (4.20-5.40); RED CELL DISTRIBUTION WIDTH 12.8 % (12.0-15.0); WHITE BLOOD COUNT 6.4 x10^3/uL (4.8-10.8)
[2023-08-24 12:39] LABS: ALBUMIN 4.3 g/dL (3.2-5.5); ALKALINE PHOSPHATASE 68 IU/L (42-121); ALT ALANINE AMINOTRANSFERASE 8 IU/L (10-60); AST ASPARTATE AMINOTRANSFERASE 15 IU/L (10-42); BILIRUBIN,TOTAL 0.5 mg/dL (0.2-1.0); BUN - BLOOD UREA NITROGEN 23 mg/dL (6-20); CALCIUM 9.5 mg/dL (8.5-10.3); CARBON DIOXIDE - CO2 24 mmol/L (21-32); CHLORIDE 106 mmol/L (101-111); CHOL/HDL RATIO 3.7 (<4.4); CHOLESTEROL 224 mg/dL; CREATININE 1.1 mg/dL (0.6-1.3); GFR - MDRD 49 (>89); GLUCOSE 164 mg/dL (74-104); HDL CHOLESTEROL 61 mg/dL; LDL CHOLESTEROL,CALCULATED 144 mg/dL; LDL/HDL RATIO 2.4 (<4.4); POTASSIUM 4.4 mmol/L (3.5-4.5); SODIUM 136 mmol/L (135-145); TOTAL PROTEIN 6.4 g/dL (6.4-8.9); TRIGLYCERIDES 97 mg/dL (48-352); VLDL CHOLESTEROL 19 mg/dL
[2023-08-24 12:53] LABS: THYROID STIMULATING HORMONE 1.79 uIU/mL (0.34-5.60)
== END 2023-08-24 10:14 | disposition home or self-care (01) ==
LOC: LAB.N 10:13
PROVIDERS: ATTEND Physician Assistant
DX: I10 Essential (primary) hypertension (principal); G47.00 Insomnia, unspecified; E78.5 Hyperlipidemia, unspecified; E53.8 Deficiency of other specified B group vitamins
CPT/HCPCS: 36415; 80053; 80061; 82607; 83721; 84443; 85025